=== PATIENT | male | born 1940 | race Caucasian/White ===

== ENCOUNTER 2023-08-20 05:33 | Outpatient (CLI) | payer MEDICARE ==
[~2023-08-20] VITALS: Ht 177.8 cm; Wt 66.8 kg
[2023-08-20] MEDS ORDERED: HYDR12.56 PO (13:57)
[2023-08-20] MEDS ORDERED: DOXA4TAB2 PO (13:57)
[2023-08-20] MEDS ORDERED: ASPI-999 PO (13:57)
[2023-08-20] MEDS ORDERED: PROP20TA5 PO (13:57)
[2023-08-20] MEDS ORDERED: ROSU20TA73 PO (13:57)
[2023-08-20] MEDS ORDERED: IRON1TAB97 PO (13:57)
== END 2023-08-20 15:00 | disposition home or self-care (01) ==
LOC: PREOP 05:33
PROVIDERS: ATTEND Specialist
DX: Z01.818 Encounter for other preprocedural examination (principal)

== ENCOUNTER 2023-08-25 08:27 | Day surgery (SDC) | payer MEDICARE ==
[~2023-08-25] VITALS: Ht 177.8 cm; Wt 66.8 kg
[2023-08-25] VITALS (10 sets, daily range): BP systolic 107–160; BP diastolic 65–85
[~2023-08-25 08:27] MED LIST: ASPI-999 PO; DOXA4TAB2 PO; HYDR12.56 PO; IRON1TAB97 PO; PROP20TA5 PO; ROSU20TA73 PO
[2023-08-25] MEDS ORDERED: LACTATED RINGERS 1,000 ML 1,000 ML IV PRN (08:45)
[2023-08-25] MEDS ORDERED: ONDANSETRON INJECTION 4 MG/2 ML (SDV) ONE (09:31)
[2023-08-25] MEDS ORDERED: proPOfol INJECTION 200 MG/20 ML VIAL IV ONE (09:31)
[2023-08-25] MEDS ORDERED: LIDOCAINE PF 2% 5 ML VIAL ONE (09:31)
[2023-08-25] MEDS ORDERED: dexAMETHasone INJ 10 MG/ML 1 ML VIAL ONE (09:31)
[2023-08-25] MEDS ORDERED: fentaNYL INJECTION 100 MCG/2 ML VIAL ONE (09:32)
--- NOTE | 2023-08-25 09:57 | Progress Note-Pre Operative ---
Pre-Operative Progress Note Date of Available H&P: Aug 24, 2023 Date H&P Reviewed: Aug 25, 2023 Time H&P Reviewed: 09:57 History & Physical: H&P Reviewed, No changes noted Pre-Operative Diagnosis: gross hematuria, proximal urethral stricture Curt DANIELLE MD Aug 25, 2023 09:57
[2023-08-25] MEDS ORDERED: GLYCOPYRROLATE INJ 0.2 MG/ML 2 ML VIAL ONE (10:21)
--- NOTE | 2023-08-25 10:43 | Anesthesia-General Post-Op ---
General Patient Condition Mental Status/LOC: Same as Preop Cardiovascular: Satisfactory Nausea/Vomiting: Absent Respiratory: Satisfactory Pain: Controlled Complications: Absent Post Op Complications Complications None Follow Up Care/Instructions Patient Instructions None needed. Anesthesia/Patient Condition Patient Condition Patient is doing well, no complaints, stable vital signs, no apparent adverse anesthesia problems. No complications reported per nursing. DORIAN HERNÁNDEZ CRNA Aug 25, 2023 10:43
[2023-08-25] MEDS ORDERED: ONDANSETRON INJECTION 4 MG/2 ML (SDV) IVP PRN (10:45)
[2023-08-25] MEDS ORDERED: morphine INJ 10 MG/ML 1ML (SYR OR VIAL) IVP ONE (10:45)
--- NOTE | 2023-08-25 10:47 | Progress Note-Post Operative ---
Post-Operative Progess Note Surgeon (s)/Childhood Teacher (s) Surgeon Curt DANIELLE MD Childhood Teacher n/a Pre-Operative Diagnosis gross hematuria, proximal urethral stricture Post-Operative Diagnosis same Post-Op Procedure Note Date of Procedure: Aug 25, 2023 Name of Procedure Performed: cystoscopy/urethral stricture dilation Description & Findings Description and Findings: n/a Anesthesia Type general Estimated Blood Loss minimal Packing none. Specimen(s) collected/removed none Curt DANIELLE MD Aug 25, 2023 10:47
--- NOTE | 2023-08-25 10:53 | Discharge Inst-Urology ---
Discharge Inst-Urology Patient Instructions/Follow Up Plan/Assessment/Instructions Please make appointment to have catheter removed in 2-3 days Make f/u appt with me in 4-6 weeks Increase oral fluids for 48 hours and then as needed. Diet as tolerated. Activity light until catheter removed If questions or concerns contact your physician Or seek help at emergency department. Curt DANIELLE MD Aug 25, 2023 10:53
--- NOTE | 2023-08-25 18:18 | OPERATIVE REPORT ---
DATE OF SERVICE: 08/25/2023 PREOPERATIVE DIAGNOSIS: Urethral stricture, gross hematuria. POSTOPERATIVE DIAGNOSIS: Urethral stricture, gross hematuria. PROCEDURE PERFORMED: Cystoscopy, dilation of urethral stricture. DRAINS: Twenty Turkish Correa catheter. INDICATIONS FOR SURGERY: Please see history and physical. DESCRIPTION OF PROCEDURE: After informed consent was obtained, general anesthetic was administered, the patient was prepped and draped in dorsal lithotomy position, received IV Levaquin. Cystoscopy with a 21 Turkish cystoscope sheath and 30 degree lens revealed normal urethra until the very proximal bulbar urethra where there was a diaphanous stricture. A guidewire was passed through this stricture. Cystoscope was then able to be passed through the stricture with minimal pressure entering the prostate. The prostate showed a [ ] large median lobe and lateral hypertrophy. Cystoscope was then removed. The Quinones sounds were then used to further dilate the stricture from 18 to 26 Turkish. These passed easily. There was minimal bleeding at the dilation. The cystoscope was then reinserted and the urethra was otherwise open. Stricture was opened. Prostatic urethra appeared uninjured. Panendoscopy of bladder with a 30 and 70 degree lens revealed normal ureteral orifices. Grade I-II trabeculation of the bladder. No tumors or stones were noted. Cystoscope was then removed. A 20 Turkish Correa catheter was placed. The efflux was very light pink. The wire was removed and the patient was taken to recovery room. He will be sent home to resume his home meds. The catheter will be removed in 2 days. He will follow up with me in 6-8 weeks. Job ID: [id number] DocumentID: [id number] Dictated Date: 08/25/2023 10:43:33 Death Claim Clerk Date: 08/25/2023 18:16:00 Dictated By: Manolo DANIELLE MD
== END 2023-08-25 12:50 | disposition home or self-care (01) ==
LOC: SDC 08:27
PROVIDERS: ATTEND Specialist
DX: N35.819 Other urethral stricture, male, unspecified site (principal); R31.0 Gross hematuria; R31.29 Other microscopic hematuria
CPT/HCPCS: 87081